=== PATIENT | male | born 1985 | race African-American/Black ===

== ENCOUNTER → 2017-10-08 | Outpatient (REF) | LOC: M LAB 15:25 | PROVIDERS: ATTEND Nurse Practitioner Adult Health | DX: Z00.00 Encounter for general adult medical examination without abnormal findings (principal) ==

== ENCOUNTER 2018-08-13 11:40 | Emergency (ER) | payer OTHER | END 2018-08-13 13:33 | disposition home or self-care (01) | LOC: M ED 11:40 | DX: S49.92XA Unspecified injury of left shoulder and upper arm, initial encounter (principal); X50.0XXA Overexertion from strenuous movement or load, initial encounter; Y92.59 Other trade areas as the place of occurrence of the external cause; Y99.0 Civilian activity done for income or pay; F43.10 Post-traumatic stress disorder, unspecified; F33.9 Major depressive disorder, recurrent, unspecified; M19.90 Unspecified osteoarthritis, unspecified site; M33.20 Polymyositis, organ involvement unspecified; Z79.899 Other long term (current) drug therapy | CPT/HCPCS: 73030 ==